=== PATIENT | male | born 1960 | race Caucasian/White ===

== ENCOUNTER → 2018-03-15 | Outpatient (CLI) | payer OTHER ==
--- NOTE | 2018-03-15 13:32 | Diagnostic Imaging Report ---
INDICATION: Left ankle pain and swelling. TIME OF EXAM: 1:22 p.m. FINDINGS: Two views of the left ankle demonstrate normal alignment. Ankle mortise is well maintained. Talar dome is smooth. No fracture or dislocation is seen. IMPRESSION: No acute bony abnormality is detected. Dictated by: Dictated on workstation # [id number]
--- NOTE | 2018-03-15 13:33 | Diagnostic Imaging Report ---
INDICATION: Left wrist arthritis. TIME OF EXAM: 01:20 p.m. FINDINGS: Two views of the left wrist demonstrate degenerative changes. There is radiocarpal narrowing. There is a tiny lucency at the tip of the radial styloid. This appears to be fairly well corticated and may represent an old fracture. No acute fracture is seen. The visualized metacarpals are intact. IMPRESSION: Chronic changes. No acute bony abnormality is detected. Dictated by: Dictated on workstation # [id number]
== END ==
LOC: RAD 12:44
PROVIDERS: ATTEND Surgery
DX: Z02.71 Encounter for disability determination (principal); M25.472 Effusion, left ankle; M19.032 Primary osteoarthritis, left wrist
CPT/HCPCS: 73100; 73600

== ENCOUNTER 2023-07-30 18:17 | Observation (INO) | payer MEDICAID ==
[~2023-07-30] VITALS: Ht 175.2 cm; Wt 66.3 kg
[2023-07-30] MEDS ORDERED: morphine INJ 10 MG/ML 1ML (SYR OR VIAL) IVP STA (18:28)
--- NOTE | 2023-07-30 18:31 | ED Abdominal Pain ---
General Chief Complaint: Abdominal/GI Problems Stated Complaint: ABD PAIN Source of Information: Patient Exam Limitations: No Limitations History of Present Illness Date Seen by Provider: Jul 30, 2023 Time Seen by Provider: 18:20 Initial Comments 62-year-old male presents the emergency department today for left groin pain. He has had an inguinal hernia for many years. He is never had pain in this area but this morning started pain in the area. He also states he has had decreased bowel movements. No bloody stools. And a bulge in his left groin. Following urination. No fevers or chills. No nausea or vomiting. He had an appendectomy and hernia repair as an but no other abdominal surgeries There are systems reviewed and negative except per HPI Allergies and Home Medications Allergies Coded Allergies: No Known Drug Allergies (Unverified , 07/30/23) Patient Home Medication List Home Medication List Reviewed: Yes Review of Systems Review of Systems Constitutional: see HPI Past Xcrpcyz-Rokyaj-Dkunsb Hx Patient Social History Tobacco Use?: Yes Use of E-Cig and/or Vaping dev: No Substance use?: No Alcohol Use?: No Physical Exam Vital Signs Vital Signs - First Documented 07/30/23 18:27 Temp 35.7 Pulse 920 Resp 16 B/P (MAP) 131/85 (100) Pulse Ox 96 Capillary Refill : Height/Weight/BMI Height: '" Weight: lbs. oz. kg; BMI Method: General Appearance: WD/WN, moderate distress (Appears to be in pain) HEENT: normal ENT inspection, pharynx normal Neck: non-tender, supple Respiratory: chest non-tender, lungs clear, normal breath sounds, no respiratory distress, no accessory muscle use Cardiovascular: regular rate, rhythm, no murmur Gastrointestinal: normal bowel sounds, soft, no organomegaly Genital/Rectal: tenderness (Tenderness palpation left inguinal region at the site of an inguinal hernia. No skin changes.) Back: normal inspection, no vertebral tenderness Neurologic/Psychiatric: alert, oriented x 3 Skin: normal color, warm/dry Progress/Results/Core Measures Results/Orders Lab Results Laboratory Tests Test 07/30/23 18:40 Range/Units White Blood Count 9.9 4.3-11.0 10^3/uL Red Blood Count 4.66 4.30-5.52 10^6/uL Hemoglobin 15.4 13.3-17.7 g/dL Hematocrit 46 40-54 % Mean Corpuscular Volume 98 80-99 fL Mean Corpuscular Hemoglobin 33 25-34 pg Mean Corpuscular Hemoglobin Concent 34 32-36 g/dL Red Cell Distribution Width 13.1 10.0-14.5 % Platelet Count 248 130-400 10^3/uL Mean Platelet Volume 9.6 9.0-12.2 fL Immature Granulocyte % (Auto) 0 % Neutrophils (%) (Auto) 74 42-75 % Lymphocytes (%) (Auto) 16 12-44 % Monocytes (%) (Auto) 8 0-12 % Eosinophils (%) (Auto) 1 0-10 % Basophils (%) (Auto) 0 0-10 % Neutrophils # (Auto) 7.4 1.8-7.8 10^3/uL Lymphocytes # (Auto) 1.6 1.0-4.0 10^3/uL Monocytes # (Auto) 0.8 0.0-1.0 10^3/uL Eosinophils # (Auto) 0.1 0.0-0.3 10^3/uL Basophils # (Auto) 0.0 0.0-0.1 10^3/uL Immature Granulocyte # (Auto) 0.0 0.0-0.1 10^3/uL My Orders Orders - JACQUELINE DILLON DO Iv/Invasive Line Insertion .IV INSERT (07/30/23 18:28) Morphine Injection (Morphine Injection (07/30/23 18:28) Basic Metabolic Panel (07/30/23 18:28) Cbc With Automated Diff (07/30/23 18:28) Etomidate Injection (Etomidate Injection (07/30/23 18:45) Ct Abdomen/Pelvis W (07/30/23 19:01) Medications Given in ED Current Medications Medications Dose Ordered Sig/Pedro Route Start Time Stop Time Status Last Admin Dose Admin Etomidate 10 mg ONCE ONCE IV 07/30/23 18:45 07/30/23 18:46 DC 07/30/23 18:54 10 MG Vital Signs/I&O 07/30/23 18:27 Temp 35.7 Pulse 920 Resp 16 B/P (MAP) 131/85 (100) Pulse Ox 96 Departure Communication (Admissions) 1900: Spoke to Dr Colon about clinical incarceration with significant pain. Patient last ate 2 hours prior to arrival. WBC is normal. I have tried to reduce hernia at bedside with etomidate and morphine without success. Patient states pain is cut in half by morphine. Dr Colon wishes to admit patient for likely surgical repair at some point. Impression Primary Impression: Incarcerated left inguinal hernia Disposition: ADMITTED INPATIENT Condition: Stable Departure-Patient Inst. Referrals: KERLINE KAPOOR MD (PCP/Family) Primary Care Physician JACQUELINE DILLON DO Jul 30, 2023 18:31
[2023-07-30] MEDS ORDERED: ETOMIDATE INJ SOLN 20 MG/10 ML VIAL IV ONE (18:45)
[2023-07-30 18:47] LABS: BASOPHILS % (AUTO) 0 % (0-10); EOSINOPHILS # (AUTO) 0.1 10^3/uL (0.0-0.3); EOSINOPHILS % (AUTO) 1 % (0-10); HEMATOCRIT 46 % (40-54); HEMOGLOBIN 15.4 g/dL (13.3-17.7); LYMPHOCYTES # (AUTO) 1.6 10^3/uL (1.0-4.0); LYMPHOCYTES % (AUTO) 16 % (12-44); MEAN CORPUSCULAR HEMOGLOBIN 33 pg (25-34); MEAN CORPUSCULAR HGB CONC 34 g/dL (32-36); MEAN CORPUSCULAR VOLUME 98 fL (80-99); MEAN PLATELET VOLUME 9.6 fL (9.0-12.2); MONOCYTES # (AUTO) 0.8 10^3/uL (0.0-1.0); MONOCYTES % (AUTO) 8 % (0-12); NEUTROPHILS # (AUTO) 7.4 10^3/uL (1.8-7.8); NEUTROPHILS % (AUTO) 74 % (42-75); PLATELET COUNT 248 10^3/uL (130-400); WHITE BLOOD COUNT 9.9 10^3/uL (4.3-11.0)
[2023-07-30 19:08] LABS: CALCIUM 9.5 MG/DL (8.5-10.1); CREATININE SERUM 1.25 MG/DL (0.60-1.30); POTASSIUM 4.7 MMOL/L (3.6-5.0)
[2023-07-30] MEDS ORDERED: HOLD METFORMIN - RECEIVED CONTRAST 20 ML VIAL IV SCH (19:15)
[2023-07-30] MEDS ORDERED: IOHEXOL 350 MG/ML 100 ML (OMNIPAQUE 350) VIAL IV ONE (19:15)
[2023-07-30] MEDS ORDERED: NS 100 ML (IVPB) BAG IV ONE (19:15)
--- NOTE | 2023-07-30 19:47 | Diagnostic Imaging Report ---
EXAMINATION: CT abdomen and pelvis with intravenous contrast. TECHNIQUE: Multiple contiguous axial images were obtained through the abdomen and pelvis after the uneventful administration of intravenous contrast. All CT scans use one or more of the following dose optimizing techniques: automated exposure control, MA and/or KvP adjustment based on patient size and exam type or iterative reconstruction. HISTORY: Left inguinal hernia. COMPARISON: None available. FINDINGS: Limited views of the lower thorax are unremarkable. The liver is normal without focal lesion. There is no biliary ductal dilation. Gallbladder is normal. Calcifications in the pancreatic head likely representing chronic pancreatitis. Spleen is normal. Adrenal glands are normal. There is a 2 mm stone in the left ureterovesical junction with moderate left hydronephrosis and perinephric stranding. There is a cyst in the left kidney. Urinary bladder is normal. Bowel is normal in caliber without obstruction or inflammation. There is a fat-containing left inguinal hernia. No free fluid or air. No abdominal or pelvic lymphadenopathy. Aorta is normal in caliber without aneurysm. There are no suspicious osseus lesions. IMPRESSION: 1. Left ureterovesical junction 2 mm stone with moderate left hydroureteronephrosis. Dictated by: Dictated on workstation # [id number]
[2023-07-30 20:20] VITALS: BP 132/73
[2023-07-30] MEDS ORDERED: morphine INJ 4 MG/ML 1 ML (VIAL/SYRINGE) IV PRN (21:45)
[2023-07-30] MEDS ORDERED: ONDANSETRON INJECTION 4 MG/2 ML (SDV) IV PRN (21:45)
[2023-07-30] MEDS: NS IV 1000 ML 1,000 ML IV SCH (22:01)
[2023-07-30 23:35] VITALS: BP 124/82
[2023-07-31 03:14] VITALS: BP 114/70
--- NOTE | 2023-07-31 07:42 | Consultation - Surgery ---
AJ DEAN 07/31/23 0742: History of Present Illness History of Present Illness Patient Consulted On(danica/time) 07/31/23 07:30 Date Seen by Provider: Jul 31, 2023 Time Seen by Provider: 06:55 Reason for Visit: Dysphagia History of Present Illness Stanislaw Chance is a 62 yo male who was admitted from the emergency department with chief complaint of left left inguinal swelling and pain, identified as a hernia on CT. The patient reports he has had a left inguinal hernia for over 6 months, but it has not changed in size or caused any pain. However, on the afternoon of 07/29, he had sudden onset of sharp left inguinal pain, followed by radiation of the pain to his LLQ and his left flank within a couple hours. He states he attempted to manage the pain at home but was unable to, so presented to the emergency department yesterday. In the ED, he had CT performed identifying both a 2 mm left ureterovesical junction stone causing moderate left hydrouteronephrosis, as well as a fat-containing left inguinal hernia. The patient was administered morphine and subsequently admitted to general surgery with plan for hernia repair this morning. Today, the patient states his pain is completely resolved. He indicates he would like to have the hernia repair performed, but in coming weeks, not today; the patient has stated preference to be discharged home at this time. The patient endorses constipation with last bowel movement 2 days ago; daily stools are normal for him. He denies any hematuria or dysuria though remarks he has had intermittently weak flow for months. The patient also denies any fever, chills, headache, sore throat, nausea, vomiting, hematochezia, melena. The patient does admit to bilateral hand and foot joint pain which is consistent with his history of rheumatoid arthritis. Allergies and Home Medications Allergies Coded Allergies: No Known Drug Allergies (Unverified , 07/30/23) Patient Home Medication List Home Medication List Reviewed: Yes Past Fpmapja-Awhpgd-Cwkgxv Hx Patient Social History Smoking Status: Heavy Tobacco Smoker Cigarettes Per Day: 20 Alcohol Use?: Yes Substance type: Methamphetamine, Marijuana Seasonal Allergies Seasonal Allergies: No Surgeries History of Surgeries: Yes Surgeries: Appendectomy Respiratory History of Respiratory Disorde: No Cardiovascular History of Cardiac Disorders: No Neurological History of Neurological Disord: No Genitourinary History of Genitourinary Disor: Yes Genitourinary Disorders: Kidney Stones Gastrointestinal History of Gastrointestinal Di: No Musculoskeletal History of Musculoskeletal Dis: Yes Musculoskeletal Disorders: Rheumatoid Arthritis Endocrine History of Endocrine Disorders: No HEENT History of HEENT Disorders: No Cancer History of Cancer: No Psychosocial History of Psychiatric Problem: No Integumentary History of Skin or Integumenta: No Blood Transfusions History of Blood Disorders: No Family Medical History Significant Family History: No Pertinent Family Hx (Denies family history of HTN, HLD, diabetes, GI disease, cancer, cardiac disease) Review of Systems-General Constitutional: No chills, No fever EENTM: No throat pain Respiratory: No cough, No dyspnea on exertion, No short of breath Cardiovascular: No chest pain Gastrointestinal: abdominal pain (LLQ), constipation (2 days); No diarrhea, No melena, No nausea, No vomiting Genitourinary: No dysuria, No frequency, No hematuria; hesitancy (ongoing for months) Musculoskeletal: joint pain (chronic) Psychiatric/Neurological: Denies Headache, Denies Numbness, Denies Weakness Physical Exam-General Problems Physical Exam Vital Signs Vital Signs - First Documented 07/30/23 07/30/23 18:27 19:50 Temp 35.7 Pulse 920 Resp 16 B/P (MAP) 131/85 (100) Pulse Ox 96 O2 Delivery Room Air Capillary Refill : Less Than 3 Seconds General Appearance: WD/WN, no apparent distress HEENT: PERRL/EOMI, normal ENT inspection, pharynx normal; No scleral icterus (R), No scleral icterus (L); other (poor dentition) Neck: non-tender, supple; No lymphadenopathy (R), No lymphadenopathy (L) Respiratory: chest non-tender, normal breath sounds, no respiratory distress, no accessory muscle use Cardiovascular: regular rate, rhythm, no edema, no murmur Peripheral Pulses: 2+ Dorsalis Pedis (R), 2+ Left Dors-Pedis (L), 2+ Radial Pulses (R), 2+ Radial Pulses (L) Gastrointestinal: normal bowel sounds, non tender, soft; No distended, No guarding, No rebound; hernia (umbilical, bilateral inguinal, left greater than right. No tenderness to any hernia) Back: no CVA tenderness, no vertebral tenderness Extremities: no pedal edema, no calf tenderness Neurologic/Psychiatric: alert, normal mood/affect, oriented x 3 Skin: normal color, warm/dry Lymphatic: no adenopathy (cervical) Data Review Labs Laboratory Tests 07/30/23 18:40: White Blood Count 9.9, Red Blood Count 4.66, Hemoglobin 15.4, Hematocrit 46, Mean Corpuscular Volume 98, Mean Corpuscular Hemoglobin 33, Mean Corpuscular Hemoglobin Concent 34, Red Cell Distribution Width 13.1, Platelet Count 248, Mean Platelet Volume 9.6, Immature Granulocyte % (Auto) 0, Neutrophils (%) (Auto) 74, Lymphocytes (%) (Auto) 16, Monocytes (%) (Auto) 8, Eosinophils (%) (A uto) 1, Basophils (%) (Auto) 0, Neutrophils # (Auto) 7.4, Lymphocytes # (Auto) 1.6, Monocytes # (Auto) 0.8, Eosinophils # (Auto) 0.1, Basophils # (Auto) 0.0, Immature Granulocyte # (Auto) 0.0, Sodium Level 139, Potassium Level 4.7, Chloride Level 110H, Carbon Dioxide Level 19L, Anion Gap 10, Blood Urea Nitrogen 13, Creatinine 1.25, Estimat Glomerular Filtration Rate 65, BUN/Creatinine Ratio 10, Glucose Level 123H, Calcium Level 9.5 Assessment/Plan Assessment/Plan Admission Diagonsis Left inguinal hernia Assessment/Plan A: 1. Left inguinal hernia 2. Right inguinal hernia 3. Umbilical hernia 4. 2 mm left ureterovesical junction stone with moderate left hydrouteronephrosis P: Patient is requesting discharge home at this time, as he is pain-free following administration of morphine. He states he would like a hernia repair but wishes to do so as an outpatient. The patient was recommended to follow up in clinic to discuss the hernia repair further and to schedule it. Patient was advised on return precautions for concerning signs of an incarcerated hernia or bowel loop, including unrelenting or worsening pain and constipation. JUAN CARMONA DO 07/31/23 0958: History of Present Illness History of Present Illness Time Seen by Provider: 09:50 History of Present Illness Surgery asked to admit pt regarding incarcerated possible strangulated Left inguinal hernia. HPI per ED: 62-year-old male presents the emergency department today for left groin pain. He has had an inguinal hernia for many years. He is never had pain in this area but this morning started pain in the area. He also states he has had decreased bowel movements. No bloody stools. And a bulge in his left groin. Following urination. No fevers or chills. No nausea or vomiting. He had an appendectomy and hernia repair as an infant but no other abdominal s urgeries When I spoke to pt he stated his pain is completely gone, he has a hx of kidney stones. He wants to go home now and come back to discuss hernia surgery as an outpt. Allergies and Home Medications Allergies Coded Allergies: No Known Drug Allergies (Unverified , 07/30/23) Patient Home Medication List Home Medication List Reviewed: Yes Past Xorzcrd-Tchtpo-Vvhtiv Hx Patient Social History Smoking Status: Current Everyday Smoker Type Used: Cigarettes Sexual Abuse: No Substance type: Methamphetamine, Marijuana Seasonal Allergies Seasonal Allergies: No Surgeries History of Surgeries: Yes Surgeries: Appendectomy Respiratory History of Respiratory Disorde: No Cardiovascular History of Cardiac Disorders: No Neurological History of Neurological Disord: No Genitourinary History of Genitourinary Disor: Yes Genitourinary Disorders: Kidney Stones Gastrointestinal History of Gastrointestinal Di: No Musculoskeletal History of Musculoskeletal Dis: Yes Musculoskeletal Disorders: Rheumatoid Arthritis Endocrine History of Endocrine Disorders: No HEENT History of HEENT Disorders: No Cancer History of Cancer: No Psychosocial History of Psychiatric Problem: No Integumentary History of Skin or Integumenta: No Blood Transfusions History of Blood Disorders: No Family Medical History Significant Family History: Other Conditions/Hx (Denies family history of HTN, HLD, diabetes, GI disease, cancer, cardiac disease) Review of Systems-General Constitutional: No chills, No fever EENTM: No blurred vision, No throat pain Respiratory: No cough, No dyspnea on exertion, No short of breath Cardiovascular: No chest pain, No Hx of Intervention, No palpitations Gastrointestinal: abdominal pain (LLQ), constipation (2 days); No diarrhea, No melena, No nausea, No vomiting Genitourinary: No dysuria, No frequency, No hematuria, No hesitancy (ongoing for months) Musculoskeletal: No back pain; joint pain (chronic) Skin: No change in color, No change in hair/nails Psychiatric/Neurological: Denies Anxiety, Denies Depressed, Denies Headache, Denies Numbness, Denies Weakness Physical Exam-General Problems Physical Exam General Appearance: WD/WN, no apparent distress Eyes: Bilateral Eye PERRL, Bilateral Eye EOMI HEENT: pharynx normal; No scleral icterus (R), No scleral icterus (L); other (poor dentition) Neck: non-tender, supple Respiratory: chest non-tender, lungs clear, normal breath sounds, no respiratory distress, no accessory muscle use Cardiovascular: regular rate, rhythm, no edema, no murmur Gastrointestinal: normal bowel sounds, non tender, soft, no organomegaly, hernia (umbilical, bilateral inguinal, left greater than right. Left is incarcerated) Rectal: deferred Back: no CVA tenderness, no vertebral tenderness Extremities: no pedal edema, no calf tenderness Neurologic/Psychiatric: alert, normal mood/affect, oriented x 3 Skin: normal color, warm/dry Lymphatic: no adenopathy (cervical, supraclavicular) Data Review Radiology Date of Exam:07/30/23 CT ABDOMEN/PELVIS W EXAMINATION: CT abdomen and pelvis with intravenous contrast. TECHNIQUE: Multiple contiguous axial images were obtained through the abdomen and pelvis after the uneventful administration of intravenous contrast. All CT scans use one or more of the following dose optimizing techniques: automated exposure control, MA and/or KvP adjustment based on patient size and exam type or iterative reconstruction. HISTORY: Left inguinal hernia. COMPARISON: None available. FINDINGS: Limited views of the lower thorax are unremarkable. The liver is normal without focal lesion. There is no biliary ductal dilation. Gallbladder is normal. Calcifications in the pancreatic head likely representing chronic pancreatitis. Spleen is normal. Adrenal glands are normal. There is a 2 mm stone in the left ureterovesical junction with moderate left hydronephrosis and perinephric stranding. There is a cyst in the left kidney. Urinary bladder is normal. Bowel is normal in caliber without obstruction or inflammation. There is a fat-containing left inguinal hernia. No free fluid or air. No abdominal or pelvic lymphadenopathy. Aorta is normal in caliber without aneurysm. There are no suspicious osseus lesions. IMPRESSION: 1. Left ureterovesical junction 2 mm stone with moderate left hydroureteronephrosis. Dictated by: Dictated on workstation # [id number] Dict: 07/30/231940 Trans: 07/30/232022 CVB [id number] Interpreted by: LYDIA ROMERO MD Electronically signed by: LYDIA ROMERO MD 07/30/232022 Assessment/Plan Assessment/Plan Assessment/Plan 1. Left inguinal hernia - incarcerated 2. Right inguinal hernia - has small portion of bladder in it 3. Umbilical hernia 4. 2 mm left ureterovesical junction stone with moderate left hydrouteronephrosis Patient is requesting discharge home at this time, as he is pain-free following administration of morphine. He states he would like a hernia repair but wishes to do so as an outpatient. The patient was recommended to follow up in clinic to discuss the hernia repair further and to schedule it. Patient was advised on return precautions for concerning signs of an incarcerated hernia or bowel loop, including unrelenting or worsening pain and constipation. I spoke with ER physician last night and reviewed the CT myself. I had actually asked ER physician to order CT to make sure there was no ischemic bowel in the hernia; only fat seen. I was not aware of the UVJ stone; which I now think was the cause of all of his pain. I will send pt home and he will follow up in the clinic to discuss hernia surgery. He does want to get them repaired. Supervisory-Addendum Brief Verification & Attestation Participated in pt care: history, MDM, physical Personally performed: exam, history, MDM, supervision of care Care discussed with: Medical Student Procedures: n/a Verification and Attestation of Medical Student E/M Service A medical student performed and documented this service. I then reviewed and verified all information documented by the medical student and made modificat ions to such information, when appropriate. I personally performed a physical exam, medical decision making and then discussed any differences between the notes and made revisions as necessary to create one note. Juan Carmona , 07/31/23 , 10:44 AJ DEAN Jul 31, 2023 07:42 JUAN CARMONA DO Jul 31, 2023 09:58
[2023-07-31] MEDS: NS IV 1000 ML 1,000 ML IV SCH (08:22)
[2023-07-31 08:24] VITALS: BP 106/68
--- NOTE | 2023-07-31 10:55 | Discharge Inst-Surgical ---
Discharge Inst-Surgical Depart Medication/Instructions New, Converted or Re-Newed RX: Other (nothing new to take) Activity Activity as Tolerated: Yes Diet Discharge Diet: No Restrictions Diet After 24 Hours: Clear Liquid if Nauseous If Any Problems/Questions/Issu: Contact Your Physician, Go to Emergency Room Skin/Wound Care Infection Signs and Symptoms: Increased Redness, Foul Odor of Wound, Increased Drainage, Skin Itchy or Has a Rash, Increased Swelling, Temperature Above 101 F Bathing Instructions: JUAN Santos DO Jul 31, 2023 10:55
[2023-07-31 11:52] VITALS: BP 103/69
== END 2023-07-31 12:05 | disposition home or self-care (01) ==
LOC: EDUNIT# 18:17 → ER 18:20 → INTOOBSV 19:54 → 4TH 19:54
PROVIDERS: ADMIT Surgery; ATTEND Surgery
DX: K40.30 Unilateral inguinal hernia, with obstruction, without gangrene, not specified as recurrent (principal); N13.2 Hydronephrosis with renal and ureteral calculous obstruction; K40.90 Unilateral inguinal hernia, without obstruction or gangrene, not specified as recurrent; K42.9 Umbilical hernia without obstruction or gangrene; F17.210 Nicotine dependence, cigarettes, uncomplicated; Z90.89 Acquired absence of other organs; Z28.310 Unvaccinated for COVID-19
CPT/HCPCS: 74177; 80048; 85025; 96361 ×2; 96374; 96375; 99284; G0378; 36415